=== PATIENT | female | born 1980 | race Hispanic/Latino ===

== ENCOUNTER 2017-09-19 09:03 | Emergency (ER) | payer MEDICAID ==
[~2017-09-19 09:03] MED LIST: PREN1TAB80 PO
[2017-09-19] MEDS ORDERED: MECLIZINE HCL 25 MG TABLET ONE (09:51)
[2017-09-19 10:32] LABS: BASOPHILS % (AUTO) 0.3 % (0.0-5.0); EOSINOPHILS % (AUTO) 0.8 % (0.0-8.0); HEMATOCRIT 34.9 % (36-48); LYMPHOCYTES % (AUTO) 14.9 % (21.0-51.0); MEAN CORPUSCULAR HEMOGLOBIN 26.5 pg (27.0-33.0); MEAN CORPUSCULAR HGB CONC 33.8 g/dL (32.0-36.0); MEAN CORPUSCULAR VOLUME 78.2 fL (79-99); MONOCYTES % (AUTO) 4.9 % (3.0-13.0); NEUTROPHILS % (AUTO) 79.1 % (40.0-77.0); PLATELET COUNT (AUTO) 208 K/uL (130-400); RED BLOOD CELL COUNT(AUTO) 4.46 MIL/uL (4.00-5.50); RED CELL DISTRIBUTION WIDTH 15.5 % (11.0-15.5); WHITE BLOOD COUNT (AUTO) 6.9 K/uL (4.8-10.8)
[2017-09-19 10:39] LABS: APPEARANCE,URINE Cloudy (CLEAR); BILIRUBIN,URINE Negative (NEGATIVE); COLOR,URINE Yellow (YELLOW); CREATININE 0.6 mg/dL (0.5-1.5); GLUCOSE, URINE (UA) Negative (NEGATIVE); KETONES,URINE Negative (NEGATIVE); LEUKOCYTE ESTERASE ,URINE Trace (NEGATIVE); NITRATE,URINE Negative (NEGATIVE); OCCULT BLOOD,URINE Negative (NEGATIVE); PH,URINE 6.5 (5.0-8.0); POTASSIUM 3.9 mmol/L (3.5-5.1); PROTEIN,URINE Negative (NEGATIVE)
[2017-09-19 11:08] LABS: BACTERIA,URINE Rare /HPF (None Seen); SQUAMOUS EPITHELIAL CELL,UR Rare /LPF (0-2); WBC,URINE 0-1 /HPF (0-1)
== END 2017-09-19 11:29 | disposition home or self-care (01) ==
LOC: EDH 09:03
DX: O26.892 Other specified pregnancy related conditions, second trimester (principal); R11.2 Nausea with vomiting, unspecified; R42 Dizziness and giddiness; I10 Essential (primary) hypertension; Z3A.00 Weeks of gestation of pregnancy not specified; Z79.899 Other long term (current) drug therapy; Z98.890 Other specified postprocedural states
CPT/HCPCS: 36415; 80048; 81001; 85025

== ENCOUNTER 2018-01-19 09:09 | Inpatient (IN) | payer OTHER, MEDICAID ==
[~2018-01-19] VITALS: Ht 160 cm; Wt 102.5 kg
[2018-01-19] MEDS ORDERED: MAGNESIUM SULFATE 1,000 ML IV PRN ×2 (09:52→13:00)
[2018-01-19] MEDS ORDERED: LACTATED RINGERS 1000ML 1,000 ML IV PRN (09:52)
[2018-01-19] MEDS ORDERED: MAGNESIUM SULFATE 1,000 ML IV ONE (09:55)
[2018-01-19] MEDS ORDERED: MAGNESIUM 4GM PREMIX 100ML 100 ML IV ONE (09:55)
[2018-01-19] MEDS ORDERED: MAGNESIUM 4GM PREMIX 100ML 100 ML IV PRN ×2 (10:00→13:00)
[2018-01-19] MEDS ORDERED: CALCIUM GLUCONATE 1 GM/10 ML VIAL IVP PRN ×2 (10:00→13:00)
[2018-01-19 10:11] LABS: APPEARANCE,URINE Cloudy (CLEAR); BILIRUBIN,URINE Negative (NEGATIVE); COLOR,URINE Yellow (YELLOW); GLUCOSE, URINE (UA) Negative (NEGATIVE); KETONES,URINE Negative (NEGATIVE); LEUKOCYTE ESTERASE ,URINE Moderate (NEGATIVE); NITRATE,URINE Negative (NEGATIVE); OCCULT BLOOD,URINE Negative (NEGATIVE); PROTEIN,URINE POS 1+ (NEGATIVE)
[2018-01-19 10:13] LABS: HEMATOCRIT 36.1 % (36-48); MEAN CORPUSCULAR HEMOGLOBIN 24.9 pg (27.0-33.0); MEAN CORPUSCULAR HGB CONC 32.9 g/dL (32.0-36.0); MEAN CORPUSCULAR VOLUME 75.7 fL (79-99); PLATELET COUNT (AUTO) 186 K/uL (130-400); RED BLOOD CELL COUNT(AUTO) 4.77 MIL/uL (4.00-5.50); RED CELL DISTRIBUTION WIDTH 16.3 % (11.0-15.5); WHITE BLOOD COUNT (AUTO) 7.1 K/uL (4.8-10.8)
[2018-01-19 10:21] LABS: BACTERIA,URINE Many /HPF (None Seen); SQUAMOUS EPITHELIAL CELL,UR Moderate /HPF (0-2)
[2018-01-19 10:30] LABS: CREATININE 0.6 mg/dL (0.5-1.5); POTASSIUM 4.1 mmol/L (3.5-5.1)
[2018-01-19 10:34] LABS: INR 0.84 (0.85-1.15); PARTIAL THROMBOPLASTIN TIME 25.5 SEC (26.3-35.5); PROTHROMBIN TIME 8.8 SEC (9.6-11.6)
[2018-01-19 10:35] LABS: ALBUMIN 2.3 g/dL (3.5-5.0); BILIRUBIN,TOTAL 0.3 mg/dL (0.2-1.0); TOTAL PROTEIN, SERUM 6.3 g/dL (6.0-8.3); URIC ACID 4.5 mg/dL (2.6-7.2)
[2018-01-19] MEDS ORDERED: LACTATED RINGERS 1000ML 1,000 ML IV SCH ×2 (11:00→13:00)
[2018-01-19] MEDS ORDERED: CEFAZOLIN SODIUM 1 GM VIAL IVP PRN (11:00)
[2018-01-19] MEDS ORDERED: SENSORCAINE/DEXT/PF 0.75% 2ML AMP IJ ONE (11:02)
[2018-01-19] MEDS ORDERED: CEFAZOLIN SODIUM 1 GM VIAL IVP ONE (11:50)
[2018-01-19] MEDS ORDERED: LIDOCAINE HCL 4% TOP SOL 50ML MM ONE (11:54)
[2018-01-19] MEDS ORDERED: ONDANSETRON HCL 4 MG/2 ML VIAL ONE (11:54)
[2018-01-19] MEDS ORDERED: DEXAMETHASONE SOD PHOSPHATE 10MG/ML 1ML VIAL ONE (11:54)
[2018-01-19] MEDS ORDERED: OXYTOCIN 10 UNIT/1ML 10ML VIAL ONE (11:54)
[2018-01-19] MEDS ORDERED: ROCURONIUM 10MG/1ML SYR 10 MG/ML ML ONE (11:54)
[2018-01-19] MEDS ORDERED: CEFAZOLIN SODIUM 1 GM VIAL ONE (11:54)
[2018-01-19] MEDS ORDERED: OXYTOCIN-LR 20 UNITS/1000 ML 1,000 ML IV PRN (13:00)
[2018-01-19] MEDS ORDERED: PROMETHAZINE HCL 25 MG/ML 1ML AMPULE IM PRN ×2 (13:00→18:00)
[2018-01-19] MEDS ORDERED: SODIUM CHLORIDE 0.9% 1000ML 1,000 ML IV SCH (13:00)
[2018-01-19] MEDS ORDERED: MEPERIDINE-PF 75 MG/ML SYG IM PRN (13:00)
[2018-01-19] MEDS ORDERED: SODIUM CHLORIDE 0.9% 10 ML VIAL IVP PRN (13:00)
[2018-01-19] MEDS ORDERED: MORPHINE SULFATE 2 MG/ML 1ML SYG ONE (15:34)
[2018-01-19] MEDS ORDERED: HYDROCODONE/ACETAMINOPHEN 10/325 MG TAB ONE (16:51)
[2018-01-19] MEDS ORDERED: HYDROCODONE/ACETAMINOPHEN 5/325 MG TAB ONE (16:54)
[2018-01-19] MEDS ORDERED: INSULIN HUMULIN R 100 UNIT/ML 3ML SQ SCH (18:00)
[2018-01-19] MEDS ORDERED: ONDANSETRON HCL 4 MG/2 ML 8 MG in SODIUM CHLORIDE 0.9% 50 ML IVP NR (18:00)
[2018-01-19] MEDS ORDERED: EPHEDRINE SULFATE 50 MG/ML AMPULE IVP PRN (18:00)
[2018-01-19] MEDS ORDERED: DiphenhydrAMINE HCL 50 MG/ML VIAL IVP PRN (18:00)
[2018-01-19] MEDS ORDERED: NALOXONE HCL 0.4 MG/1 ML ML IVP PRN (18:00)
[2018-01-19] MEDS ORDERED: ONDANSETRON HCL 4 MG/2 ML VIAL IVP PRN (18:00)
[2018-01-19] MEDS ORDERED: HYDROCODONE/ACETAMINOPHEN 5/325 MG TAB PO PRN ×2 (18:00)
[2018-01-19] MEDS ORDERED: ONDANSETRON HCL MDV 20ML 2 MG/ML VIAL IVP PRN (18:00)
[2018-01-19] MEDS ORDERED: METOCLOPRAMIDE 10 MG/2 ML VIAL IVP PRN (18:00)
[2018-01-19] MEDS: MORPHINE SULFATE 2 MG/ML 1ML SYG IVP PRN (19:49)
[2018-01-19] MEDS ORDERED: OXYTOCIN 10 USP UNITS/ML ONE (21:37)
[2018-01-19] MEDS ORDERED: LACTATED RINGERS 1000ML 1,000 ML IV ONE (21:37)
[2018-01-20] MEDS: MORPHINE SULFATE 2 MG/ML 1ML SYG IVP PRN (00:08)
[2018-01-20 05:46] LABS: HEMATOCRIT 33.5 % (36-48); MEAN CORPUSCULAR HEMOGLOBIN 25.8 pg (27.0-33.0); MEAN CORPUSCULAR HGB CONC 34.1 g/dL (32.0-36.0); MEAN CORPUSCULAR VOLUME 75.7 fL (79-99); PLATELET COUNT (AUTO) 204 K/uL (130-400); RED BLOOD CELL COUNT(AUTO) 4.43 MIL/uL (4.00-5.50); WHITE BLOOD COUNT (AUTO) 6.8 K/uL (4.8-10.8)
[2018-01-20 07:29] LABS: HEPATITIS Bs ANTIGEN SCREEN P Negative (Negative)
[2018-01-20] MEDS ORDERED: LANOLIN 30GM OINTMENT TP PRN (08:15)
[2018-01-20] MEDS ORDERED: DIPH,PERTUSS(ACELL),TET VAC/PF 0.5 ML VIAL IM SCH (08:15)
[2018-01-20] MEDS ORDERED: ACETAMINOPHEN EXTRA STRENGTH 500 MG TABLET PO PRN (08:15)
[2018-01-20] MEDS ORDERED: MEASLES/MUMPS/RUBELLA VACCINE, LIVE 0.5 ML/VIAL SQ SCH (08:15)
[2018-01-20] MEDS ORDERED: SODIUM CHLORIDE 0.9% 10 ML VIAL IVP PRN (08:15)
[2018-01-20] MEDS ORDERED: DIPHENHYDRAMINE HCL 25 MG CAPSULE PO PRN (08:15)
[2018-01-20] MEDS: INSULIN HUMULIN R 100 UNIT/ML 3ML SQ SCH ×2 (11:30→21:00)
[2018-01-20 11:35] VITALS: BP 141/89
[2018-01-20] MEDS: IBUPROFEN 600 MG TABLET PO PRN ×2 (12:37→18:28)
[2018-01-20] MEDS: SIMETHICONE 80 MG TAB.CHEW PO PRN ×3 (12:37→20:35)
[2018-01-20 15:47] VITALS: BP 142/80
[2018-01-20 20:20] VITALS: BP 138/73
[2018-01-20] MEDS: DOCUSATE SODIUM 100 MG CAP PO SCH (20:34)
[2018-01-20 23:40] VITALS: BP 137/84
[2018-01-21 03:26] VITALS: BP 130/72
[2018-01-21 07:19] VITALS: BP 147/80
[2018-01-21] MEDS: DOCUSATE SODIUM 100 MG CAP PO SCH (09:30)
[2018-01-21] MEDS: SIMETHICONE 80 MG TAB.CHEW PO PRN (09:30)
[2018-01-21] MEDS: IBUPROFEN 600 MG TABLET PO PRN (09:31)
[2018-01-21 12:04] VITALS: BP 163/76
== END 2018-01-21 13:05 | disposition home or self-care (01) | DRG 766 ==
LOC: LDH 09:09 → OBSVTOIN 09:52 → WSH 01-20 11:35
PROVIDERS: ADMIT Obstetrics & Gynecology; ATTEND Obstetrics & Gynecology
PROC: 0UB70ZZ Excision of Bilateral Fallopian Tubes, Open Approach (ICD-10-PCS; 2018-01-19)
PROC: 3E0234Z Introduction of Serum, Toxoid and Vaccine into Muscle, Percutaneous Approach (ICD-10-PCS; 2018-01-19)
PROC: 3E0134Z Introduction of Serum, Toxoid and Vaccine into Subcutaneous Tissue, Percutaneous Approach (ICD-10-PCS; 2018-01-19)
PROC: 10D00Z1 Extraction of Products of Conception, Low, Open Approach (ICD-10-PCS; principal; 2018-01-19 11:30)
DX: O60.14X0 Preterm labor third trimester with preterm delivery third trimester, not applicable or unspecified (principal); E66.9 Obesity, unspecified; O24.429 Gestational diabetes mellitus in childbirth, unspecified control; O13.4 Gestational [pregnancy-induced] hypertension without significant proteinuria, complicating childbirth; O99.214 Obesity complicating childbirth; O34.211 Maternal care for low transverse scar from previous cesarean delivery; K66.0 Peritoneal adhesions (postprocedural) (postinfection); Z37.0 Single live birth; Z3A.36 36 weeks gestation of pregnancy; Z30.2 Encounter for sterilization; Z23 Encounter for immunization
CPT/HCPCS: 36415; 59510; 80053; 81001; 82948; 83735; 84550; 85027; 85384; 85610; 85730; 86592; 86850; 86900; 86901; 87340; 88302; A4344; A4450; A4606; G0378; J0690; J1100; J2175; J2405; J2550; J2590; J3475; J3490; J7120

== ENCOUNTER 2019-11-01 11:36 | Emergency (ER) | payer OTHER ==
[2019-11-01] MEDS ORDERED: ACETAMINOPHEN EXTRA STRENGTH 500 MG TABLET ONE (13:09)
[2019-11-01] MEDS ORDERED: ONDANSETRON ODT 4 MG TAB ONE (13:09)
[2019-11-01 13:53] LABS: BASOPHILS % (AUTO) 0.3 % (0.0-5.0); EOSINOPHILS % (AUTO) 0.2 % (0.0-8.0); HEMATOCRIT 38.8 % (36-48); LYMPHOCYTES % (AUTO) 10.3 % (21.0-51.0); MEAN CORPUSCULAR HEMOGLOBIN 22.4 pg (27.0-33.0); MEAN CORPUSCULAR HGB CONC 29.6 g/dL (32.0-36.0); MEAN CORPUSCULAR VOLUME 75.6 fL (79-99); MONOCYTES % (AUTO) 4.1 % (3.0-13.0); NEUTROPHILS % (AUTO) 84.7 % (40.0-77.0); PLATELET COUNT (AUTO) 250 K/uL (130-400); RED BLOOD CELL COUNT(AUTO) 5.13 MIL/uL (4.00-5.50); RED CELL DISTRIBUTION WIDTH 15.9 % (11.0-15.5); WHITE BLOOD COUNT (AUTO) 9.3 K/uL (4.8-10.8)
[2019-11-01 13:57] LABS: APPEARANCE,URINE Cloudy (CLEAR); BILIRUBIN,URINE Negative (NEGATIVE); COLOR,URINE Yellow (YELLOW); GLUCOSE, URINE (UA) Negative (NEGATIVE); KETONES,URINE Trace mg/dL (NEGATIVE); LEUKOCYTE ESTERASE ,URINE Moderate (NEGATIVE); NITRATE,URINE Negative (NEGATIVE); OCCULT BLOOD,URINE Trace (NEGATIVE); PROTEIN,URINE Negative (NEGATIVE); UROBILINOGEN,URINE 0.2 mg/dL (0.2-1.0)
[2019-11-01 14:00] LABS: HCG,QUAL RESULT NEGATIVE (NEGATIVE)
[2019-11-01 14:12] LABS: BACTERIA,URINE Rare /HPF (None Seen); SQUAMOUS EPITHELIAL CELL,UR Rare /HPF (0-2); WBC,URINE 0-1 /HPF (0-1)
[2019-11-01 14:27] LABS: CREATININE 0.8 mg/dL (0.5-1.5); POTASSIUM 3.5 mmol/L (3.5-5.1)
[2019-11-01 14:39] LABS: ALBUMIN 3.5 g/dL (3.5-5.0); BILIRUBIN,TOTAL 0.5 mg/dL (0.2-1.0); TOTAL PROTEIN, SERUM 7.1 g/dL (6.0-8.3)
== END 2019-11-01 15:52 | disposition home or self-care (01) ==
LOC: EDH 11:36
DX: Q61.3 Polycystic kidney, unspecified (principal); I10 Essential (primary) hypertension
CPT/HCPCS: 36415; 74176; 80053; 81001; 81025; 85025; 87804

== ENCOUNTER 2022-11-02 18:03 | Emergency (ER) | payer OTHER ==
[~2022-11-02] VITALS: Ht 160 cm; Wt 100.7 kg
[2022-11-02 18:56] LABS: BASOPHILS % (AUTO) 0.3 % (0.0-5.0); EOSINOPHILS % (AUTO) 1.3 % (0.0-8.0); HEMATOCRIT 23.3 % (36-48); LYMPHOCYTES % (AUTO) 20.6 % (21.0-51.0); MEAN CORPUSCULAR HEMOGLOBIN 16.8 pg (27.0-33.0); MEAN CORPUSCULAR HGB CONC 26.2 g/dL (32.0-36.0); MEAN CORPUSCULAR VOLUME 64.2 fL (79-99); MONOCYTES % (AUTO) 5.9 % (3.0-13.0); NEUTROPHILS % (AUTO) 70.2 % (40.0-77.0); NUCLEATED RED BLOOD CELLS 1.3 % (0.0-0.19); PLATELET COUNT (AUTO) 262 K/uL (130-400); RED BLOOD CELL COUNT(AUTO) 3.63 MIL/uL (4.00-5.50); RED CELL DISTRIBUTION WIDTH 22.5 % (11.0-15.5); WHITE BLOOD COUNT (AUTO) 7.1 K/uL (4.8-10.8)
[2022-11-02 19:06] LABS: POTASSIUM 3.7 mmol/L (3.5-5.1)
[2022-11-02 19:11] LABS: ALBUMIN 3.4 g/dL (3.5-5.0); TOTAL PROTEIN, SERUM 6.5 g/dL (6.0-8.3)
[2022-11-02] MEDS ORDERED: MEDR10TA PO (23:58)
[2022-11-02] MEDS ORDERED: FERS325 PO (23:58)
[2022-11-03 00:54] VITALS: BP 153/74
== END 2022-11-03 01:17 | disposition home or self-care (01) ==
LOC: EDH 18:03
DX: N93.9 Abnormal uterine and vaginal bleeding, unspecified (principal); D64.9 Anemia, unspecified; R53.1 Weakness; Z79.899 Other long term (current) drug therapy
CPT/HCPCS: 99285; 36430; 80053; 85025; 86850; 86900; 86901; 86923; 36415; P9016

== ENCOUNTER 2024-09-04 09:20 | Emergency (ER) | payer SELFPAY ==
[~2024-09-04] VITALS: Ht 160 cm; Wt 97.5 kg
[~2024-09-04 09:20] MED LIST changes: +FERS325 PO; +MEDR10TA PO
--- NOTE | 2024-09-04 09:39 | ERN ---
ED Note History of Present Illness Stated Complaint: CHEST PAIN Chief Complaint: Chest Pain Dictation: Patient is a 43 yr old female with a past medical history significant for hypertension. Presents today with a chief complaint of of chest pain that started yesterday. Patient describes the pain as sharp, pressure-like sensation located in the bilateral upper sternal area. There is no associated shortness of breath, nausea. No radiation to arms, neck , jaw or back. No dizziness or palpitations. HEART score is 1. Allergies: Coded Allergies: No Known Drug Allergies (Unverified Allergy, Unknown, 12/16/14) Home Meds Active Scripts Ibuprofen (Ibu) 400 Mg Tablet, 1 TAB PO Q4HPRN PRN for PAIN for 5 Days, #30 TAB 0 Refills NEEDED FOR PAIN Prov:JACKIE WILKINS MD 09/04/24 Medroxyprogesterone Acetate (Provera) 10 Mg Tablet, 10 MG PO DAILY for 14 Days, #14 TAB Prov:SERVANDO ANTHONY MD 11/02/22 Ferrous Sulfate (Ferrous Sulfate) 325 Mg Ectab, 325 MG PO DAILY for 30 Days, #30 TAB.EC Prov:SERVANDO ANTHONY MD 11/02/22 Reported Medications Vits W-Ca,Fe,FA(<1Mg) ( Vitamins) 1 Each Tablet, 1 EACH PO DAILY, TAB 12/16/14 Past Medical History Past Medical History: Hypertension Surgical History: Other, Surgical History Other: TUBAL LIGATION Social History: Negative Review of System Dictation ROS Constitutional: No appetite loss, No fevers, chills , No night sweats, No weakness, fatigue Eye: No vision change, No redness, pain or discharge ENT: No hearing loss, ear pain or discharge, No nose bleeds, No sore throat, Neck: No swelling. pain or stiffness Respiratory: No cough, shortness of breath, wheezing Cardiovascular: Bilateral upper sternal pain, no palpitations, dyspnea, No edema Gastrointestinal: No abdominal pain, No nausea, vomiting, No diarrhea, constipation Genitourinary: No painful urination, No blood in urine, No urinary incontinence, No frequency or urgency Musculoskeletal: No joint pain, muscle pain, swelling or stiffness Neurological: No numbness, tingling, No weakness, tremors or seizures Psychiatric: : No depression, No anxiety, No sleep disturbance, No Memory changes Lymphatic: No easy bruising, No bleeding tendencies , No swollen lymph nodes Initial Vital Sign VS Vital Signs Date Time Temp Pulse Resp B/P (MAP) Pulse Ox O2 Delivery O2 Flow Rate FiO2 09/04/24 09:22 98.4 71 20 212/102 99 Room Air 0 Physical Exam Dictation General: Alert & Oriented, No acute distress. EENT: No conjunctival redness or discharge noted Tympanic membranes are clear, Normal hearing, Oral mucosa is moist, No pharyngeal erythema, No nasal discharge, No oral lesions. Neck: Non-tender, No jugular vein distention, No lymphadenopathy, No thyromegaly, Supple. Respiratory: Lungs are clear to auscultation, Respirations are non-labored, Breath sounds are equal, No chest wall tenderness, _. Cardiovascular: Normal rate, Normal rhythm, No murmur, Good pulses equal in all extremities, Normal peripheral perfusion, No edema. Gastrointestinal: Soft, Non-tender, Non-distended, Normal bowel sounds, No organomegaly, _. Musculoskeletal: Normal range of motion, Normal strength, No tenderness, No swelling, No deformity, Normal gait. Integumentary: Warm, Dry, [place], Intact, No pallor, No rash. Neurologic: Alert, Oriented x4, Normal sensory, No focal defects Psychiatric: Cooperative, Appropriate mood & affect, Normal judgement, Non- suicidal. Results (Laboratory/Radiology) Laboratory/Radiology Laboratory Tests Test 09/04/24 09:31 09/04/24 09:33 09/04/24 09:55 Urine Color LIGHT-YELLOW (YELLOW) Urine Appearance HAZY (CLEAR) Urine pH 7.0 (5.0-8.0) Urine Specific [place] 1.011 (1.001-1.031) Urine Protein 20 mg/dL (NEGATIVE) H Urine Glucose (UA) NEGATIVE mg/dL (NEGATIVE) Urine Ketones NEGATIVE mg/dL (NEGATIVE) Urine Occult Blood LARGE (NEGATIVE) H Urine Nitrate NEGATIVE (NEGATIVE) Urine Bilirubin NEGATIVE mg/dL (NEGATIVE) Urine Urobilinogen 0.2 mg/dL (0.2-1.0) Urine Leukocyte Esterase NEGATIVE [place]/uL Urine RBC 6-10 /HPF (0-1) H Urine WBC 2-5 /HPF (0-1) H Urine Squamous Epithelial Cells MANY /HPF (0-2) Urine Bacteria RARE /HPF (None Seen) White Blood Count 7.5 K/uL (4.8-10.8) Red Blood Count 4.72 MIL/uL (4.00-5.50) Hemoglobin 11.4 g/dL (12.0-16.0) L Hematocrit 38.2 % (36-48) Mean Corpuscular Volume 80.9 fL (79-99) Mean Corpuscular Hemoglobin 24.2 pg (27.0-33.0) L Mean Corpuscular Hemoglobin Concent 29.8 g/dL (32.0-36.0) L Red Cell Distribution Width 15.9 % (11.0-15.5) H Platelet Count 319 K/uL (130-400) Mean Platelet Volume 10.6 fL (7.5-10.5) H Immature Granulocyte % (Auto) 0.9 % (0-1) Neutrophils (%) (Auto) 72.0 % (40.0-77.0) Lymphocytes (%) (Auto) 20.2 % (21.0-51.0) L Monocytes (%) (Auto) 5.6 % (3.0-13.0) Eosinophils (%) (Auto) 0.9 % (0.0-8.0) Basophils (%) (Auto) 0.4 % (0.0-5.0) Neutrophils # (Auto) 5.4 K/uL (1.8-7.7) Lymphocytes # (Auto) 1.5 K/uL (1.0-4.8) Monocytes # (Auto) 0.4 K/uL (0.1-1.0) Eosinophils # (Auto) 0.07 K/uL (0.00-0.70) Basophils # (Auto) 0.03 K/uL (0.00-0.20) Absolute Immature Granulocyte (auto 0.07 K/uL (0-1) Nucleated Red Blood Cells 0.0 % (0.0-0.19) Red Blood Cell Morphology See comments Sodium Level 146 mmol/L (136-145) H Potassium Level 3.5 mmol/L (3.5-5.1) Chloride Level 107 mmol/L (101-111) Carbon Dioxide Level 30 mmol/L (21-32) Blood Urea Nitrogen 12 mg/dL (7-18) Creatinine 1.1 mg/dL (0.5-1.0) H Glomerular Filtration Rate Calc 64 mL/min (>90) Random Glucose 106 mg/dL (70-105) H Total Calcium 9.1 mg/dL (8.5-10.1) Total Creatine Kinase 67 U/L (21-232) B-Type Natriuretic Peptide 42 pg/mL (0-100) Troponin I < 0.05 ng/mL (0.00-0.05) ED Course ED Course Orders Procedure Category Date Status Time Vital Signs Per CPOE 09/04/24 Transmitted Routine 09:21 B-Type Natriuretic LAB 09/04/24 Complete Peptide 09:21 Chest 1vw RAD 09/04/24 Resulted 09:21 12 Lead Ekg Tracing- EKG 09/04/24 Complete Technical 09:21 Oxygen By Nc/Pulse Ox CPOE 09/04/24 Transmitted 09:21 Maintain Iv CPOE 09/04/24 Transmitted 09:21 Iv Insertion CPOE 09/04/24 Transmitted 09:21 Cardiac Monitoring CPOE 09/04/24 Transmitted 09:21 Pulse Oximetry With CPOE 09/04/24 Transmitted Vs And Prn 09:21 Cbc With Differential LAB 09/04/24 Complete 09:21 Activity: Br W/Brp CPOE 09/04/24 Transmitted With Assist 09:21 Creatine Kinase, Total LAB 09/04/24 Complete 09:21 Urinalysis Profile LAB 09/04/24 Complete 09:21 Troponin Poc Order LAB 09/04/24 Complete Only 09:21 Bedside Troponin-I LAB.ER 09/04/24 In Process (Poc) 09:21 Basic Metabolic Panel LAB 09/04/24 Complete 09:21 Ketorolac PHA 09/04/24 Complete Tromethamine 15mg/Ml 10:30 Current Medications Medications (Trade) Dose Ordered Sig/Enrique Route PRN Reason Start Time Stop Time Status Last Admin Dose Admin Ketorolac Tromethamine (toRADol) 15 mg ONCE ONCE IM 09/04/24 10:30 09/04/24 10:31 DC Vital Signs Date Time Temp Pulse Resp B/P (MAP) Pulse Ox O2 Delivery O2 Flow Rate FiO2 09/04/24 09:22 98.4 71 20 212/102 99 Room Air 0 HEART Score Response (Comments) Value History: Low suspicion (0) 0 EKG: Normal 0 Age: < 45yrs (0) 0 Risk Factors: 1-2 risk factors (+1) 1 Initial Troponin: Normal limit (0) 0 HEART Score Risk: Low Risk for MACE (1-3) Total 1 Medical Decision Making MDM MDM Potential differential diagnoses include: Acute Coronary Syndrome Costochondritis GERD Pneumonia Assessment: I will order a CBC, CMP, CXR, cardiac panel and administer medications according to the patient's complaint. I will re-evaluate the patient after treatment and diagnostic exams have returned to determine whether they require further testing, can be safely discharged home, or need admission for further treatment and evaluation. Given the social determinants of health affecting care, including literacy, access to medical care, prescription drug management, and [id number] d rugs, I will ensure that treatment plans are tailored accordingly. Revaluation : Patient is alert and oriented. EKG showed sinus rhythm, troponin and BNP are negative, negative white count, denies difficulty in swallowing or heartburn. Blood pressure came down from 200 to 150s without medication, will ask her to f/u with PCP regarding antihypertensives. Disposition: Will discharge patient at this time with prescription of Motrin PO and instructions to follow up with PCP for further evaluation and treatment. Critical Care Note Critical Time: 30 minutes DX & DISP Disposition: Discharge Departure Impression: Primary Impression: Costochondral pain Critical Time: 30 minutes Condition: Stable Scripts Ibuprofen (Ibu) 400 Mg Tablet 1 TAB PO Q4HPRN PRN for PAIN for 5 Days, #30 TAB 0 Refills NEEDED FOR PAIN Prov: JACKIE WILKINS MD 09/04/24 Referrals: BINU PUENTEP (PCP) ATTESTATION BY PHYSICIAN I have seen and examined the patient. I reviewed the documentation, medical decision making, and treatment plan as noted by the resident provider above. I agree with the findings and plan of care. Johnathan Santoro MD, NIHITHA MD Sep 04, 2024 09:39
[2024-09-04 09:45] LABS: BILIRUBIN,URINE NEGATIVE (NEGATIVE); COLOR,URINE LIGHT-YELLOW (YELLOW); GLUCOSE, URINE (UA) NEGATIVE (NEGATIVE); KETONES,URINE NEGATIVE (NEGATIVE); LEUKOCYTE ESTERASE ,URINE NEGATIVE Leu/uL (NEGATIVE); NITRATE,URINE NEGATIVE (NEGATIVE); OCCULT BLOOD,URINE LARGE (NEGATIVE); PROTEIN,URINE 20 mg/dL (NEGATIVE); UROBILINOGEN,URINE 0.2 mg/dL (0.2-1.0)
[2024-09-04 09:46] LABS: ADD UA MICROSCOPIC YES; APPEARANCE,URINE HAZY (CLEAR)
[2024-09-04 09:47] LABS: BASOPHILS # (AUTO) 0.03 K/uL (0.00-0.20); BASOPHILS % (AUTO) 0.4 % (0.0-5.0); EOSINOPHILS # (AUTO) 0.07 K/uL (0.00-0.70); EOSINOPHILS % (AUTO) 0.9 % (0.0-8.0); HEMATOCRIT 38.2 % (36-48); IMMATURE GRANULOCYTE ABSOLUTE 0.07 K/uL (0-1); LYMPHOCYTES # (AUTO) 1.5 K/uL (1.0-4.8); LYMPHOCYTES % (AUTO) 20.2 % (21.0-51.0); MEAN CORPUSCULAR HEMOGLOBIN 24.2 pg (27.0-33.0); MEAN CORPUSCULAR HGB CONC 29.8 g/dL (32.0-36.0); MEAN CORPUSCULAR VOLUME 80.9 fL (79-99); MONOCYTES # (AUTO) 0.4 K/uL (0.1-1.0); MONOCYTES % (AUTO) 5.6 % (3.0-13.0); NEUTROPHILS # (AUTO) 5.4 K/uL (1.8-7.7); PLATELET COUNT (AUTO) 319 K/uL (130-400); RED BLOOD CELL COUNT(AUTO) 4.72 MIL/uL (4.00-5.50); RED CELL DISTRIBUTION WIDTH 15.9 % (11.0-15.5); WHITE BLOOD COUNT (AUTO) 7.5 K/uL (4.8-10.8)
[2024-09-04 09:55] LABS: BACTERIA,URINE RARE /HPF (None Seen); SQUAMOUS EPITHELIAL CELL,UR MANY /HPF (0-2)
--- NOTE | 2024-09-04 10:05 | HMCIMG ---
CHEST 1VW HISTORY: Chest pain COMPARISON: None FINDINGS: A frontal projection of the chest was obtained. No acute pulmonary infiltrates is seen. The heart is borderline enlarged. Mild degenerative changes are seen. Aortic calcifications are seen. Prominent interstitial markings are seen IMPRESSION: 1. No acute pulmonary infiltrate is seen.
[2024-09-04 10:06] LABS: CREATININE 1.1 mg/dL (0.5-1.0); POTASSIUM 3.5 mmol/L (3.5-5.1)
[2024-09-04 10:10] LABS: B-TYPE NATRIURETIC PEPTIDE 42 pg/mL (0-100)
[2024-09-04] MEDS ORDERED: IBUP-1552 PO (10:24)
--- NOTE | 2024-09-04 10:26 | EKG ---
[facility] Test Date: 2024-09-04 Test Time: 09:33:35 Pat Name: RABIA TERESA Department: 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
[2024-09-04] MEDS: ketOROlac 15MG/ML VIAL (15MG/ML) IM ONE (10:41)
[2024-09-04 11:02] VITALS: BP 170/86; PULSE 64; RESP 18; TEMP 98.4; O2SAT 99
== END 2024-09-04 11:24 | disposition home or self-care (01) ==
LOC: EDH 09:20
DX: R07.1 Chest pain on breathing (principal); I10 Essential (primary) hypertension; Z98.51 Tubal ligation status
CPT/HCPCS: 99285; 71045; 82550; 84484; 80048; 83880; 85025; 81001; 36415; 96372; 93005; J1885